=== PATIENT | female | born 1990 | race Caucasian/White ===

== ENCOUNTER 2024-08-24 09:53 | Day surgery (SDC) | payer OTHER, SELFPAY ==
[2024-08-24] VITALS (9 sets, daily range): BP systolic 123–141; BP diastolic 75–103; BMI 29.6
[2024-08-24] MEDS: DILAUDID 0.25 MG IV (15:13)
== END 2024-08-24 16:10 | disposition home or self-care (01) ==
LOC: SDS 09:53
PROVIDERS: ATTENDING PHYSICIAN Otolaryngology
DX: J35.01 Chronic tonsillitis (principal); F19.11 Other psychoactive substance abuse, in remission
CPT/HCPCS: 42826; 88304